=== PATIENT | female | born 1995 | race Caucasian/White ===

== ENCOUNTER 2019-01-15 15:10 | Emergency (ER) | payer OTHER ==
--- NOTE | 2019-01-15 15:30 | EDPHY ---
H & P Stated Complaint: abd and back pain sent from [facility] Time Seen by Provider: 01/15/19 15:30 HPI/ROS: CHIEF COMPLAINT: Back pain and abdominal pain HISTORY OF PRESENT ILLNESS: The patient presents emergency department complaints of back pain and abdominal pain that began earlier today. She does have a history of frequent urinary tract infections and was seen at urgent care. She reportedly had a negative urine test at that point time and was sent to the ED for further evaluation of her abdominal pain and back pain. The patient denies any right-sided complaints. She denies vomiting or diarrhea. She denies recent antibiotic use. REVIEW OF SYSTEMS: A comprehensive 10 point review of systems is otherwise negative aside from elements mentioned in the history of present illness. Source: Patient Exam Limitations: No limitations - Personal History LMP (Females 10-55): 8-14 Days Ago Current Tetanus Diphtheria and Acellular Pertussis (TDAP): Yes - Medical/Surgical History Hx Asthma: No Hx Chronic Respiratory Disease: No Hx Diabetes: No Hx Cardiac Disease: No Hx Renal Disease: No Hx Cirrhosis: No Hx Alcoholism: No Hx HIV/AIDS: No Hx Splenectomy or Spleen Trauma: No Other PMH: none - Social History Smoking Status: Never smoked - Physical Exam Exam: General Appearance: Alert, no distress Eyes: Pupils equal and round no pallor or injection ENT, Mouth: Mucous membranes moist Respiratory: There are no retractions, lungs are clear to auscultation Cardiovascular: Regular rate and rhythm Gastrointestinal: Minimal tenderness to palpation left lower quadrant, normal bowel sounds, no peritoneal signs Neurological: 5/5 strength all 4 extremities Skin: Warm and dry, no rashes Musculoskeletal: Tenderness to palpation left sacroiliac joint Extremities: symmetrical, full range of motion Psychiatric: Patient is oriented X 3, there is no agitation Constitutional: Initial Vital Signs Temperature (C) 37 C 01/15/19 15:13 Heart Rate 87 01/15/19 15:13 Respiratory Rate 16 01/15/19 15:13 Blood Pressure 137/110 H 01/15/19 15:13 O2 Sat (%) 98 01/15/19 15:13 O2 Delivery Mode Room Air Allergies/Adverse Reactions: No Known Allergies Allergy (Unverified 01/15/19 15:16) Home Medications: Medication Instructions Recorded NK [No Known Home Meds] 01/15/19 Medical Decision Making - Diagnostics Imaging Results: CT abdomen pelvis without contrast: Images reviewed by myself and discussed with radiologist Dr. Valdez. Impression: Constipation, no nephrolithiasis or intra-abdominal abnormality noted ED Course/Re-evaluation: Patient presents the ED for evaluation of back pain which certainly seems to be musculoskeletal in nature. The patient also has a mild amount of left lower quadrant tenderness. She has no peritoneal signs on exam. Her urinalysis demonstrates no evidence of infection. There is no evidence of . CT scan of the abdomen pelvis was obtained which demonstrates no evidence of diverticulitis, perforation or abscess. At this point time I do feel the patient can be discharged home with instructions to use NSAIDs as needed for likely sacroiliac pain and [id number] laxatives as needed for constipation. The patient will be given customary aftercare instructions and return precautions. Differential Diagnosis: Differential diagnosis considered includes urinary tract infection, pyelonephritis, nephrolithiasis, constipation, myofascial strain - Data Points Laboratory Results: 01/15/19 01/15/19 15:32 15:32 Urine Color YELLOW Urine Appearance CLEAR Urine pH 6.0 (5.0-7.5) Ur Specific [place] 1.017 (1.002-1.030) Urine Protein NEGATIVE (NEGATIVE) Urine Ketones NEGATIVE (NEGATIVE) Urine Blood NEGATIVE (NEGATIVE) Urine Nitrate NEGATIVE (NEGATIVE) Urine Bilirubin NEGATIVE (NEGATIVE) Urine Urobilinogen NEGATIVE EU EU (0.2-1.0) Ur Leukocyte Esterase NEGATIVE (NEGATIVE) Urine Glucose NEGATIVE (NEGATIVE) Urine Test NEGATIVE Departure - Departure Disposition: Home, Routine, Self-Care Clinical Impression: Sacroiliitis, Constipation Condition: Good Instructions: Sacroiliitis (ED), Constipation (ED) Additional Instructions: 1. Take Ibuprofen or Motrin 600 mg by mouth three times a day for management of your back pain. 2. Your CT scan does demonstrate constipation which is likely causing her lower abdominal pain. I recommend anoj-wtz-[id number] medications such as milk of magnesia and MiraLax for treatment. 3. Please return to the ED for markedly worsening symptoms, fever, vomiting or other concerns.
[2019-01-15 17:40] VITALS: BP 136/98
== END 2019-01-15 17:40 | disposition home or self-care (01) ==
DX: M46.1 Sacroiliitis, not elsewhere classified (principal); K59.00 Constipation, unspecified